=== PATIENT | female | born 1980 | race African-American/Black ===

== ENCOUNTER 2017-06-19 20:45 | Emergency (ER) | payer OTHER ==
[~2017-06-19] VITALS: Ht 167.6 cm; Wt 65.2 kg
[~2017-06-19 20:45] MED LIST: AMLODIPINE2.5 MG OR; AMLODIPINE5 MG OR; AMOXICILLIN500 MG; ATIVAN0.5 MG OR; DEP0PROVERA; LISINOP/HCTZ1 TAB OR; LISINOPRIL10 MG OR; NAPROXEN SOD550 MG OR; NEXIUM40 M1 OR; POT CHLORIDE20 ME3 OR; PRILOSEC20 MG OR; TRAMADOL HCL50 MG OR
[2017-06-19 21:46] LABS: HEMATOCRIT 38.6 % (37.0-47.0); HEMOGLOBIN 12.3 g/dl (12.0-16.0); IMMATURE GRANULOCYTES 0.2 % (0.0-1.0); MEAN CORPUSCULAR HGB 26.5 pG CALC (26.0-32.0); MEAN CORPUSCULAR HGB CONC 31.9 g/L CALC (32.0-36.0); NEUT# 3.45 thou/uL (2.00-7.15); RED BLOOD COUNT 4.65 mill/uL (4.20-5.60); RED CELL DISTRI WIDTH 14.6 % (11.5-15.5)
[2017-06-19 21:54] LABS: URINE BLOOD DIPSTICK NEGATIVE (NEGATIVE); URINE COLOR YELLOW; URINE GLUCOSE - DIPSTICK NEGATIVE (NEGATIVE); URINE KETONE 15 mg/dL (NEGATIVE); URINE LEUK ESTERASE NEGATIVE (NEGATIVE); URINE NITRITE - DIPSTICK NEGATIVE (Negative); URINE PROTEIN - DIPSTICK TRACE mg/dL (NEG-TRACE)
[2017-06-19 21:56] LABS: URINE BILIRUBIN - DIPSTICK SMALL (NEGATIVE); URINE CLARITY CLEAR
[2017-06-19 21:59] LABS: BARBITURATES NEGATIVE (NEGATIVE); COCAINE NEGATIVE (NEGATIVE); METHADONE NEGATIVE (NEGATIVE); OXCYCODONE NEGATIVE (NEGATIVE); TETRAHYDROCANNABIONOL POSITIVE (NEGATIVE); TRICYLIC ANTIDEPRESSANTS NEGATIVE (NEGATIVE)
[2017-06-19 22:02] LABS: ALBUMIN 4.4 g/dL (3.2-5.0); ALKALINE PHOSPHATASE 66 u/l (38-126); ANION GAP 16 (6-22 (CALC)); BILIRUBIN, TOTAL 1.5 mg/dL (0.0-1.4); BUN 8 mg/dL (7-17); BUN/CREATININE RATIO 10 (12-20 (CALC)); CARBON DIOXIDE 29 mmol/l (22-30); CHLORIDE 101 mmol/l (95-108); CREATININE 0.8 mg/dL (0.5-1.0); GFR > 60 ML/MIN (>=60 (CALC)); GFR FOR AFR.AMER. > 60 ML/MIN (>=60 (CALC)); POTASSIUM 3.2 mmol/l (3.5-5.1); SGOT/AST 13 u/l (14-36); SGPT/ALT 15 u/l (9-52); SODIUM 142 mmol/l (137-146); TOTAL PROTEIN 7.2 g/dL (6.3-8.2)
[2017-06-19] MEDS ORDERED: FIORICET PO (23:33)
[2017-06-19 23:50] VITALS: BP 132/73
== END 2017-06-19 23:54 | disposition home or self-care (01) | DRG 103 ==
LOC: ED 20:45
PROVIDERS: Emergency Medicine
DX: R51 Headache (principal); E87.6 Hypokalemia; I10 Essential (primary) hypertension; F41.9 Anxiety disorder, unspecified; Z98.2 Presence of cerebrospinal fluid drainage device; R11.2 Nausea with vomiting, unspecified

== ENCOUNTER 2018-07-22 19:10 | Emergency (ER) | payer OTHER ==
[~2018-07-22] VITALS: Ht 167.6 cm; Wt 66.0 kg
[~2018-07-22 19:10] MED LIST changes: +FIORICET PO
[2018-07-22 20:01] LABS: HEMATOCRIT 35.7 % (37.0-47.0); HEMOGLOBIN 11.5 g/dl (12.0-16.0); IMMATURE GRANULOCYTES 0.3 % (0.0-5.0); MEAN CELL VOLUME 83.2 fL CALC (80.0-100.0); MEAN CORPUSCULAR HGB 26.8 pG CALC (26.0-32.0); MEAN CORPUSCULAR HGB CONC 32.2 g/L CALC (32.0-36.0); NEUT# 7.43 thou/uL (2.00-7.15); RED BLOOD COUNT 4.29 mill/uL (4.20-5.60); RED CELL DISTRI WIDTH 13.6 % (11.5-15.5)
[2018-07-22 20:17] LABS: ALBUMIN 4.7 g/dL (3.2-5.0); ALKALINE PHOSPHATASE 73 u/l (38-126); ANION GAP 17 (6-22 (CALC)); BILIRUBIN, TOTAL 1.8 mg/dL (0.0-1.4); BUN 10 mg/dL (7-17); BUN/CREATININE RATIO 11 (12-20 (CALC)); CARBON DIOXIDE 22 mmol/l (22-30); CHLORIDE 106 mmol/l (95-108); CREATININE 0.9 mg/dL (0.5-1.0); GFR > 60 ML/MIN (>=60 (CALC)); GFR FOR AFR.AMER. > 60 ML/MIN (>=60 (CALC)); POTASSIUM 3.3 mmol/l (3.5-5.1); SGOT/AST 20 u/l (14-36); SODIUM 141 mmol/l (137-146); TOTAL PROTEIN 7.7 g/dL (6.3-8.2)
[2018-07-22 22:23] LABS: BARBITURATES NEGATIVE (NEGATIVE); COCAINE NEGATIVE (NEGATIVE); METHADONE NEGATIVE (NEGATIVE); OXCYCODONE NEGATIVE (NEGATIVE); TETRAHYDROCANNABIONOL NEGATIVE (NEGATIVE); TRICYLIC ANTIDEPRESSANTS NEGATIVE (NEGATIVE)
[2018-07-23 00:55] VITALS: BP 148/96
== END 2018-07-23 01:03 | disposition home or self-care (01) ==
LOC: ED 19:10
PROVIDERS: Emergency Medicine
DX: F12.10 Cannabis abuse, uncomplicated (principal); I10 Essential (primary) hypertension; F41.9 Anxiety disorder, unspecified; F17.200 Nicotine dependence, unspecified, uncomplicated; R06.02 Shortness of breath; R42 Dizziness and giddiness
CPT/HCPCS: J2060

== ENCOUNTER 2018-12-17 11:16 | Emergency (ER) | payer OTHER ==
[~2018-12-17] VITALS: Ht 167.6 cm; Wt 96.2 kg
[2018-12-17 13:36] VITALS: BP 138/77
== END 2018-12-17 13:47 | disposition left against medical advice (07) ==
LOC: ED 11:16
DX: S89.91XA Unspecified injury of right lower leg, initial encounter (principal); M54.5 Low back pain; R10.31 Right lower quadrant pain; I10 Essential (primary) hypertension; X50.0XXA Overexertion from strenuous movement or load, initial encounter; Y93.F2 Activity, caregiving, lifting; Y92.89 Other specified places as the place of occurrence of the external cause; Y99.0 Civilian activity done for income or pay; Z91.19 Patient's noncompliance with other medical treatment and regimen

== ENCOUNTER 2019-09-16 22:48 | Emergency (ER) | payer MEDICAID ==
[~2019-09-16] VITALS: Ht 167.6 cm; Wt 80.0 kg
[~2019-09-16 22:48] MED LIST changes: +LISINOP/HCTZ1 TA2 PO; -LISINOP/HCTZ1 TAB OR
[2019-09-16 23:22] VITALS: BP 164/104
[2019-09-17] MEDS ORDERED: AMOXICILLIN500 MG PO (00:16)
[2019-09-17] MEDS ORDERED: PERCOCET 5/325M1 TAB PO (00:16)
== END 2019-09-17 00:20 | disposition home or self-care (01) | DRG 158 ==
LOC: ED 22:48
DX: K02.9 Dental caries, unspecified (principal); M84.68XA Pathological fracture in other disease, other site, initial encounter for fracture; I10 Essential (primary) hypertension; F41.9 Anxiety disorder, unspecified

== ENCOUNTER 2019-09-22 17:02 | Emergency (ER) | payer MEDICAID ==
[~2019-09-22] VITALS: Ht 167.6 cm; Wt 65.9 kg
[~2019-09-22 17:02] MED LIST changes: +AMOXICILLIN500 MG PO; +PERCOCET 5/325M1 TAB PO
--- NOTE | 2019-09-22 17:27 | NUR ---
PATIENT TO ROOM 14 FOR BEDSIDE TRIAGE. AWAITING MD KAUR.
[2019-09-22 18:19] LABS: HEMATOCRIT 34.4 % (37.0-47.0); HEMOGLOBIN 10.9 g/dl (12.0-16.0); IMMATURE GRANULOCYTES 0.1 % (0.0-5.0); MEAN CORPUSCULAR HGB CONC 31.7 g/dL CAL (32.0-36.0); NEUT# 5.27 thou/uL (2.00-7.15); RED BLOOD COUNT 4.54 mill/uL (4.20-5.60); RED CELL DISTRI WIDTH 17.9 % (11.5-15.5)
[2019-09-22 18:22] LABS: MEAN CELL VOLUME 75.8 fL CALC (80.0-100.0)
[2019-09-22 18:34] LABS: ALBUMIN 4.1 g/dL (3.2-5.0); ALKALINE PHOSPHATASE 55 u/l (38-126); BUN 8 mg/dL (7-17); BUN/CREATININE RATIO 12 (12-20 (CALC)); CHLORIDE 105 mmol/l (95-108); CREATININE 0.7 mg/dL (0.5-1.0); ETHYL ALCOHOL 0 mg/dl (0-30); GFR > 60 ML/MIN (>=60 (CALC)); GFR FOR AFR.AMER. > 60 ML/MIN (>=60 (CALC)); POTASSIUM 3.5 mmol/l (3.5-5.1); SGOT/AST 13 u/l (14-36); SODIUM 138 mmol/l (137-146); TOTAL PROTEIN 7.3 g/dL (6.3-8.2)
[2019-09-22 18:37] LABS: ANION GAP 10 (6-22 (CALC)); BILIRUBIN, TOTAL 0.8 mg/dL (0.0-1.4); CARBON DIOXIDE 27 mmol/l (22-30)
--- NOTE | 2019-09-22 18:49 | NUR ---
RECEIVED HAND OFF REPORT FROM SOHA
[2019-09-22 18:58] VITALS: BP 148/98
[2019-09-22 18:59] LABS: URINE BILIRUBIN - DIPSTICK NEGATIVE (NEGATIVE); URINE BLOOD DIPSTICK NEGATIVE (NEGATIVE); URINE COLOR YELLOW; URINE GLUCOSE - DIPSTICK NEGATIVE (NEGATIVE); URINE KETONE NEGATIVE (NEGATIVE); URINE LEUK ESTERASE NEGATIVE (NEGATIVE); URINE NITRITE - DIPSTICK NEGATIVE (Negative); URINE PROTEIN - DIPSTICK TRACE mg/dL (NEG-TRACE)
[2019-09-22 19:04] LABS: TSH, 3RD GENERATION 1.16 uIU/mL (0.47 - 4.68)
[2019-09-22] MEDS ORDERED: ATIVAN0.5 MG PO ×2 (19:18→19:19)
--- NOTE | 2019-09-22 19:50 | NUR ---
D/C instructions given with verbalization of understanding. Pt. discharged home in stable condition. Return to [facility] for any problems. Please take your medications as prescribed by your doctor.
== END 2019-09-22 19:48 | disposition home or self-care (01) ==
LOC: ED 17:02 → ED-I 19:08 → ED 19:48
PROVIDERS: Emergency Medicine
DX: F41.9 Anxiety disorder, unspecified (principal); I10 Essential (primary) hypertension; Z63.4 Disappearance and death of family member

== ENCOUNTER 2019-09-25 16:01 | Emergency (ER) | payer MEDICAID ==
[~2019-09-25] VITALS: Ht 167.6 cm; Wt 65.5 kg
[~2019-09-25 16:01] MED LIST changes: +ATIVAN0.5 MG PO
[2019-09-25] MEDS ORDERED: ATIVAN0.5 MG PO (16:54)
[2019-09-25] MEDS ORDERED: SEROQUEL25 MG PO (16:55)
[2019-09-25] MEDS ORDERED: ZOFRAN4 MG/TAB PO (17:40)
[2019-09-25 18:10] VITALS: BP 144/89
== END 2019-09-25 18:10 | disposition home or self-care (01) | DRG 392 ==
LOC: ED 16:01
DX: R11.2 Nausea with vomiting, unspecified (principal); F41.9 Anxiety disorder, unspecified; I10 Essential (primary) hypertension

== ENCOUNTER 2023-04-20 18:31 | Emergency (ER) | payer OTHER ==
[~2023-04-20] VITALS: Ht 167.6 cm; Wt 74.0 kg
[~2023-04-20 18:31] MED LIST changes: +PREDNISONE50 MG PO; +SEROQUEL25 MG PO; +VENTOLIN HFA108 MCG; +ZOFRAN4 MG/TAB PO
[2023-04-20 18:42] VITALS: BP 209/113
[2023-04-20 18:45] VITALS: BP 179/96
[2023-04-20 19:01] VITALS: BP 177/93
[2023-04-20] MEDS ORDERED: NAPROXEN500 MG PO (19:26)
[2023-04-20 19:31] VITALS: BP 157/86
[2023-04-20 19:47] VITALS: BP 157/86
== END 2023-04-20 19:58 | disposition home or self-care (01) ==
LOC: ED 18:31
DX: S93.601A Unspecified sprain of right foot, initial encounter (principal); I10 Essential (primary) hypertension; X50.0XXA Overexertion from strenuous movement or load, initial encounter